=== PATIENT | male | born 1940 | race Caucasian/White ===

== ENCOUNTER 2016-11-22 06:30 | Day surgery (SDC) | payer MEDICARE ==
--- NOTE | ~2016-11-22 | EGD ---
EGD REPORT [facility] [address] [place] [address] NAME: LARRY PUENTE : [birth year] STATUS : REG [facility] PAT#: [id number] AGE: 76 ADM/REG DATE : 11/22/16 MR#: [id number] REPORT SERV DATE: 11/22/16 DICTATED BY: BETH SCHWAB DATE: 11/22/16 REPORT STATUS : Draft [facility]ANSCRIBED BY: [facility] DATE: 11/22/16 Endoscopy Center Patient Name: Larry Puente Date of : 1940 Attending MD: BETH SCHWAB MD Procedure Date No Time: 11/22/2016 Procedure: Colonoscopy Indications: High risk colon cancer surveillance: Personal history of colonic polyps Referring MD: BRAIN [employer]RAFT Medicines: as per anesthesia Complications: No immediate complications. Procedure: Pre-Anesthesia Assessment: - ASA Grade Assessment: III - A patient with severe systemic disease. After I obtained informed consent, the scope was passed under direct vision. Throughout the procedure, the patient's blood pressure, pulse, and oxygen saturations were monitored continuously. The PCF [id number] was introduced through the anus and advanced to the cecum, identified by appendiceal orifice and ileocecal valve. The colonoscopy was performed without difficulty. The patient tolerated the procedure. The quality of the bowel preparation was adequate to identify polyps. Findings: The perianal and digital rectal examinations were normal. A single small angiodysplastic lesion without bleeding was found in the ascending colon. A few small-mouthed diverticula were found in the sigmoid colon. Internal hemorrhoids were found during endoscopy and were mild. Impression: - A single non-bleeding colonic angiodysplastic lesion. - Diverticulosis in the sigmoid colon. - Internal hemorrhoids. Recommendation: - Repeat colonoscopy in 5 years for surveillance. Procedure Code(s): --- Professional --- 31176, Colonoscopy, flexible, proximal to splenic flexure; diagnostic, with or without collection of specimen(s) by brushing or washing, with or without colon decompression (separate procedure) Diagnosis Code(s): --- Professional --- EGD REPORT [address] [place]. [address] NAME: LARRY PUENTE : [birth year] STATUS : REG [facility]#: [id number] AGE: 76 ADM/REG DATE : 11/22/16 MR#: [id number] REPORT SERV DATE: 11/22/16 DICTATED BY: BETH SCHWAB DATE: 11/22/16 REPORT STATUS : Draft TRANSCRIBED BY: [employer] DATE: 11/22/16 K55.20, Angiodysplasia of colon without hemorrhage K64.8, Other hemorrhoids K57.30, Diverticulosis of large intestine without perforation or abscess without bleeding Z86.010, Personal history of colonic polyps CPT copyright 2013 [employer]. All rights reserved. The codes documented in this report are preliminary and upon tool inspector review may be revised to meet current compliance requirements. BETH SCHWAB MD 11/22/2016 8:40 AM This report has been signed electronically. Number of Addenda: 0 Note Initiated On: 11/22/2016 8:03 AM Scope Withdrawal Time 0 hours 10 minutes [address] [place] [address] [place] [address]
[~2016-11-22 06:30] MED LIST: ASAB PO; LIPITOR40 PO; MOBIC15 MG PO; PRILO PO; Z300 PO; ZESTORETIC1 TA1 PO
== END 2016-11-22 23:59 | disposition home or self-care (01) ==
LOC: DMU 06:30
PROVIDERS: Internal Medicine Gastroenterology
PROC: 0DJD8ZZ Inspection of Lower Intestinal Tract, Via Natural or Artificial Opening Endoscopic (ICD-10-PCS; principal; 2016-11-22 08:00)
DX: Z12.11 Encounter for screening for malignant neoplasm of colon (principal); Z86.010 Personal history of colon polyps; K57.30 Diverticulosis of large intestine without perforation or abscess without bleeding; K64.8 Other hemorrhoids; K55.20 Angiodysplasia of colon without hemorrhage; Z85.118 Personal history of other malignant neoplasm of bronchus and lung; I10 Essential (primary) hypertension; Z90.2 Acquired absence of lung [part of]; Z79.82 Long term (current) use of aspirin; Z79.1 Long term (current) use of non-steroidal anti-inflammatories (NSAID); Z79.899 Other long term (current) drug therapy